=== PATIENT | male | born 1980 | race African-American/Black ===

== ENCOUNTER 2020-10-23 10:54 | Emergency (ER) | payer BC ==
[~2020-10-23] VITALS: Ht 175.3 cm; Wt 101.0 kg
[2020-10-23] MEDS ORDERED: METOCLOPRAMIDE HCL 10 MG/2 ML VIAL. IVP ONE (11:30)
[2020-10-23] MEDS ORDERED: KETOROLAC 15 MG/ML VIAL. IVP ONE (11:30)
[2020-10-23] MEDS ORDERED: IV NORMAL SALINE 1,000ML 1,000 ML IV ONE (11:30)
--- NOTE | 2020-10-23 11:34 | PHYS DOC ---
Past History Past Medical History: Diabetes Past Surgical History: Other Additional Past Surgical Histo: hernia repair as adolescent Smoking: Cigarettes Alcohol Use: Occasionally Drug Use: None General Adult EDM: Chief Complaint: ABDOMINAL PAIN HPI: HPI: Patient is a 28 year old male who presents with abdominal pain with onset at 600 this morning. The pain sharp and stabbing and is inferior to his right ribs and radiates to his back and lower abdomen. Nothing improves. Movement worsens. N/V associated. Pain 01/20. Review of Systems: Review of Systems: Constitutional: Denies fever or chills Eyes: Denies redness or eye pain HENT: Denies nasal congestion or sore throat Respiratory: Denies cough or shortness of breath Cardiovascular: Denies chest pain or palpitations GI: Denies abdominal pain, nausea, or vomiting : Denies dysuria or hematuria Musculoskeletal: Denies back pain or joint pain Integument: Denies rash or skin lesions Neurologic: Denies headache, focal weakness or sensory changes Complete systems were reviewed and found to be within normal limits, except as documented in this note. Current Medications: Current Meds: Current Medications Medications (Trade) Dose Ordered Sig/Lyndsey Start Time Stop Time Status Last Admin Dose Admin Ketorolac Tromethamine (Toradol 15mg Vial) 15 mg 1X ONCE 10/23/20 11:30 10/23/20 11:31 DC Metoclopramide HCl (Reglan Vial) 10 mg 1X ONCE 10/23/20 11:30 10/23/20 11:31 DC Sodium Chloride 1,000 ml @ 1,000 mls/hr 1X ONCE 10/23/20 11:30 10/23/20 12:29 Allergies: Allergies: Allergies Coded Allergies Type Severity Reaction Last Updated Verified No Known Drug Allergies 10/23/20 No Physical Exam: PE: Constitutional: Well developed, well nourished, no acute distress, non-toxic appearance HENT: Normocephalic, atraumatic Eyes: PERRL, EOMI, conjunctiva normal, no discharge Lungs & Thorax: No respiratory distress, equal chest rise and fall Cardiovascular: RRR, no murmurs Abdomen: BSx4, tender to palpation Skin: Warm, dry, no erythema, no rash Back: No tenderness, no CVA tenderness Extremities: No tenderness, ROM intact, no edema Neurologic: Alert and oriented X 3, normal motor function, normal sensory function, no focal deficits noted Psychologic: Affect normal, judgment normal Current Patient Data: Vital Signs: Vital Signs Date Time Temp Pulse Resp B/P (MAP) Pulse Ox O2 Delivery O2 Flow Rate FiO2 10/23/20 11:06 98.8 83 18 138/87 98 Room Air EKG: EKG: [] Radiology/Procedures: Radiology/Procedures: PROCEDURE: CT ABDOMEN PELVIS WO CONTRAST EXAM: Abdomen and pelvis CT without intravenous contrast. HISTORY: Flank pain. TECHNIQUE: Computed tomographic images of the abdomen and pelvis were obtained without contrast. Multiplanar reformatting was performed. *One or more of the following individualized dose reduction techniques were utilized for this examination: 1. Automated exposure control. 2. Adjustment of the mA and/or kV according to patient size. 3. Use of iterative reconstruction technique. COMPARISON: None. FINDINGS: Evaluation of the lower thorax demonstrates a few tiny benign pleural- based nodules within the lateral left lower thorax. There is no infiltrate or suspicious pulmonary nodule. The heart is normal in size. No hepatic lesion is seen. There is cholelithiasis. The pancreas is unremarkable. There is a splenule inferior to an otherwise unremarkable spleen. The adrenal glands and stomach are unremarkable. There is no evidence of nephroureterolithiasis or hydronephrosis. There is no bladder wall thickening likely due to relative under distention. There is no appendicitis. There is no bowel obstruction or abnormal bowel wall thickening. The aorta is normal in caliber. There is no lymphadenopathy. There is no acute or suspicious osseous finding. There is degenerative change involving the lumbar spine, primarily at the lumbosacral junction. There is associated foraminal and central canal stenosis primarily at this level. IMPRESSION: 1. No evidence of nephroureterolithiasis or hydronephrosis. 2. Cholelithiasis. Electronically signed by: Lori Kingsley MD (10/23/2020 12:11 PM) [id number] Heart Score: C/O Chest Pain: N/A Course & Med Decision Making: Course & Med Decision Making Pt symptoms and PE led to suspicion of nephrolithiasis. Ordered CBC w/diff and chem panel. Ordered CT w/o contrast which suggested cholelithiasis and not nephrolithiasis or appendicitis. Informed patient of CT findings and of his very high blood glucose levels secondary to diabetes. Pt's pain was also much improved. Pt was advised to maintain low fat/low sugar diet and to see PCP for diabetes management. Patient stable for discharge with outpatient follow-up with PCP/general surgery. General surgery referral provided. Discussed findings and plan with patient and family, who acknowledge understanding and agreement. Chilo Disclaimer: Chilo Disclaimer: This electronic medical record was generated, in whole or in part, using a voice recognition dictation system. Departure Departure: Impression: Primary Impression: Cholelithiasis Qualified Codes: K80.20 - Calculus of gallbladder without cholecystitis without obstruction Additional Impression: Hyperglycemia Disposition: HOME / SELF CARE / HOMELESS Condition: STABLE Referrals: PCP,[facility] (PCP) DOC JOHNSTON MD Patient Instructions: Cholelithiasis, [id number], Diabetes Meal Planning Guide, Diet - 2000 Calorie Diabetic, Fat and Cholesterol Control Diet, [id number], Hyperglycemia, [id number] Additional Instructions: Increase fluid hydration. Watch sugar intake and follow closely with primary care regarding your elevated blood sugar. Maintain a low fat diet until seen by general surgery. May also take over the counter Tylenol and/or Ibuprofen for pain or discomfort. Scripts Tramadol Hcl (TRAMADOL HCL) 50 Mg Tablet 50 MG PO PRN Q6HRS PRN for PAIN, #14 TAB Prov: PAVAN GATES DO 10/23/20 Ondansetron (ONDANSETRON ODT) 4 Mg Tab.rapdis 1 TAB PO PRN Q6-8HRS PRN for NAUSEA, #16 TAB Prov: PAVAN GATES DO 10/23/20 PAVAN GATES DO Oct 23, 2020 11:33
[2020-10-23 11:38] LABS: BASO % 0 % (0-3); EOS % 0 % (0-3); HEMATOCRIT 44.6 % (39.0-53.0); HEMOGLOBIN 14.5 g/dL (13.0-17.5); LYMPH % 16 % (24-48); MEAN CORPUSCULAR HEMOGLOBIN 28 pg (25-35); MEAN CORPUSCULAR HGB CONC 32 g/dL (31-37); MEAN CORPUSCULAR VOLUME 86 fL (79-100); MONO # 0.6 x10^3/uL (0.0-1.1); MONO % 5 % (0-9); NEUT # 9.5 x10^3uL (1.8-7.7); NEUT % 78 % (31-73); PLATELET COUNT 277 x10^3/uL (140-400); RED BLOOD COUNT 5.17 x10^6/uL (4.30-5.70); RED CELL DISTRIBUTION WIDTH 13.8 % (11.5-14.5); WHITE BLOOD COUNT 12.2 x10^3/uL (4.0-11.0)
[2020-10-23 11:45] LABS: CALCIUM 9.2 mg/dL (8.5-10.1); GFR 99.6; POTASSIUM 4.3 mmol/L (3.5-5.1)
[2020-10-23 11:52] LABS: ALBUMIN 3.8 g/dL (3.4-5.0); ALBUMIN/GLOBULIN RATIO 1.1 (1.0-1.7); MAGNESIUM 1.9 mg/dL (1.8-2.4); TOTAL BILIRUBIN 0.5 mg/dL (0.2-1.0); TOTAL PROTEIN 7.3 g/dL (6.4-8.2)
[2020-10-23 12:10] LABS: BACTERIA,URINE 0 /HPF (0-FEW); BILIRUBIN,URINE NEG (NEG); CLARITY,URINE HAZY; COLOR,URINE YELLOW; GLUCOSE,URINE >=1000 mg/dL (NEG); NITRITE,URINE NEG (NEG); RBC,URINE 0 /HPF (0-2); UROBILINOGEN,URINE 0.2 mg/dL (0.2 mg/dL); WBC,URINE 0 /HPF (0-4)
--- NOTE | 2020-10-23 12:13 | RAD ---
EXAM: Abdomen and pelvis CT without intravenous contrast. HISTORY: Flank pain. TECHNIQUE: Computed tomographic images of the abdomen and pelvis were obtained without contrast. Mult iplanar reformatting was performed. *One or more of the following individualized dose reduction techniques were utilized for this examina tion: 1. Automated exposure control. 2. Adjustment of the mA and/or kV according to patient size. 3. Use of iterative reconstruction technique. COMPARISON: None. FINDINGS: Evaluation of the lower thorax demonstrates a few tiny benign pleural-based nodules within the lateral left lower thorax. There is no infiltrate or suspicious pulmonary nodule. The heart is no rmal in size. No hepatic lesion is seen. There is cholelithiasis. The pancreas is unremarkable. There is a splenule inferior to an otherwise unremarkable spleen. The adrenal glands and stomach are unrem arkable. There is no evidence of nephroureterolithiasis or hydronephrosis. There is no bladder wall thickening likely due to relative under distention. There is no appendicitis. There is no bowel obstruction or abnormal bowel wall thickening. The aorta is normal in caliber. There is no lymphadenopathy. There is no acute or suspicious osseous finding. There is degenerative change involving the lumbar spine, william ac at the lumbosacral junction. There is associated foraminal and central canal stenosis primaril y at this level. IMPRESSION: 1. No evidence of nephroureterolithiasis or hydronephrosis. 2. Cholelithiasis. Electronically signed by: Lori Kingsley MD (10/23/2020 12:11 PM) [id number]
[2020-10-23 12:16] VITALS: BP 128/76
[2020-10-23] MEDS ORDERED: ONDA4TAB12 PO (12:37)
[2020-10-23] MEDS ORDERED: TRAM50TA PO ×2 (12:37→14:22)
== END 2020-10-23 12:57 | disposition home or self-care (01) ==
LOC: ER 10:54
DX: K80.20 Calculus of gallbladder without cholecystitis without obstruction (principal); E11.65 Type 2 diabetes mellitus with hyperglycemia; F17.210 Nicotine dependence, cigarettes, uncomplicated
CPT/HCPCS: 36415; 74176; 80053; 81001; 83690; 83735; 85025; 96361; 96374; 96375; 99284; J1885; J2765; J7030